=== PATIENT | female | born 1970 | race Caucasian/White ===

== ENCOUNTER 2017-03-15 18:28 | Emergency (ER) | payer OTHER ==
[~2017-03-15] VITALS: Ht 157.5 cm; Wt 56.0 kg
[~2017-03-15 18:28] MED LIST: CETI10CA PO; GUAI118L94 PO; HYDR-3011 PO; IBUP-1542 PO; IBUP200C11; POLY10DR19 RIGHT EYE; PREN1TAB49 ODT; SODI44SP11 NS; TRAM50TA2 PO
[2017-03-15 18:40] VITALS: Ht 157.5 cm; Wt 56.0 kg
[2017-03-15] MEDS ORDERED: BEN25 PO (19:22)
[2017-03-15] MEDS ORDERED: CETI10CA PO (19:23)
[2017-03-15] MEDS ORDERED: HC30CR25 TOP (19:23)
--- NOTE | 2017-03-15 19:40 | ERD ---
ER Documentation Chief Complaint Date/Time DATE: 03/15/17 TIME: 19:30 Chief Complaint itchiness,redness over her R thigh&back,teary eyes after taking med HPI Patient is a 47-year-old Greenlandic-speaking female with no past medical history who presents to the ED with bilateral itchy eyes and a rash on her arm and leg. She states that she took Ivone-Pomaria with an expiration date of July 2016 and states that she developed the symptoms about 1 hour afterwards. She denies tongue or lip swelling or difficulty breathing. Denies chest pain or cough or shortness of breath. States that the rash is itchy but not painful. Denies blurry vision or pain with eye movement. Denies fever or chills. No other complaints. ROS All systems reviewed and are negative except as per history of present illness. Medications Home Meds Active Scripts Hydrocortisone* Topical (Hydrocortisone* Topical) 2.5%-28.3 Gm Cream..g., 1 APPLIC TOP BID, #1 TUB Prov:RUDDY PATINO PA-C 03/15/17 Cetirizine Hcl* (Zyrtec*) 10 Mg Capsule, 10 MG PO DAILY, #10 TAB.CHEW Prov:RUDDY PATINO PA-C 03/15/17 Diphenhydramine Hcl* (Benadryl*) 25 Mg Cap, 25 MG PO Q6, #30 CAP Prov:RUDDY PATINO PA-C 03/15/17 Ibuprofen* (Ibuprofen*) 600 Mg Tablet, 600 MG PO Q8 Y for PAIN AND/OR INFLAMMATION, #30 TAB Prov:LAMBERTO SHEA MD 04/12/16 Hydroxyzine Hcl* (Hydroxyzine Hcl*) 25 Mg Tablet, 25 MG PO TID for NASAL CONGESTION, #30 TAB Prov:LAMBERTO SHEA MD 04/12/16 Ibuprofen* (Ibuprofen*) 600 Mg Tablet, 600 MG PO Q6 for 20 Days, TAB Prov:BETH BRANHAM MD 08/25/15 Polymyxin B Sulfate-TMP* (Polymyxin B-TMP Eye Drops*) 10 Ml Drops, 1 DROP RIGHT EYE QID for 7 Days, EA Prov:BETH BRANHAM MD 08/25/15 Cetirizine Hcl* (Zyrtec*) 10 Mg Capsule, 10 MG PO DAILY, #20 TAB.CHEW Prov:BETH BRANHAM MD 08/25/15 Tramadol HCl (Tramadol HCl) 50 Mg Tablet, 50 MG PO Q4 Y for PAIN, #20 TAB Prov:BETH BRANHAM MD 08/25/15 Guaifenesin-Codeine Phosphate* (Guaifenesin* with Codeine Liq) 120 Ml Liquid, 120 ML PO Q4H for COUGH, #120 ML Prov:TIFFANIE STOKES NP 07/12/15 Sodium Chloride (Saline Nasal [place]) 45 Ml Cl[place], 2 SPRAY NS Q2H, #1 BOT Prov:TIFFANIE STOKES NP 07/12/15 Reported Medications Vits W-Ca,Fe,Fa(<1MG) () 1 Tab Tablet, 1 ODT D for 1 Day 06/21/11 Ibuprofen* (Advil*) 200 Mg Capsule 04/06/10 Allergies Allergies: Coded Allergies: Penicillins (Verified Allergy, Mild, 07/05/14) PMhx/Soc History of Surgery: Yes (tonscills ) Anesthesia Reaction: No Hx Neurological Disorder: No Hx Respiratory Disorders: No Hx Cardiac Disorders: Yes (HTN, high cholesterol) Hx Psychiatric Problems: No Hx Miscellaneous Medical Probl: No Hx Alcohol Use: No Hx Substance Use: No Hx Tobacco Use: No Smoking Status: Never smoker FmHx Family History: No coronary disease, No diabetes, No other Physical Exam Vitals Vital Signs Date Time Temp Pulse Resp B/P Pulse Ox O2 Delivery O2 Flow Rate FiO2 03/15/17 18:40 98.3 66 18 165/76 98 Physical Exam GENERAL: Well-developed, well-nourished female. Appears in no acute distress. HEAD: Normocephalic, atraumatic. EYES: Pupils are equally reactive bilaterally. EOMs grossly intact. No conjunctival erythema. ENT: Moist mucous membranes. No uvula deviation. No kissing tonsils. No exudates. No tongue or lip swelling. NECK: Supple. No lymphadenopathy or thyromegaly. No meningismus. negative kernig. negative brudinski. LUNG: Clear to auscultation bilaterally. No rhonchi, wheezing, rales or coarse breath sounds. HEART: Regular rate and rhythm. No murmurs, rubs or gallops. BACK: No midline tenderness. Extremities: Equal pulses bilaterally. No peripheral clubbing, cyanosis or edema. No unilateral leg swelling. NEUROLOGIC: Alert and oriented. Moving all four extremities. 5/5 strength in all extremities. Normal speech. Steady gait. SKIN: Normal color. Warm and dry. No rashes visualized. Capillary refill < 2 seconds Procedures/MDM ER COURSE: I kept the patient and/or family informed of laboratory and diagnostic imaging results throughout the emergency room course. MEDICAL DECISION MAKING: This is a 47-year-old female who presents with rash and itchy eyes. Vital signs were reviewed. Patient is afebrile. Patient is not hypoxic. Low suspicion for necrotizing fasciitis, SJS, toxic epidermal necrolysis, Kawasaki, erythema multiforme, gangrene, scarlet fever, meningococcemia, sepsis, anaphylaxis, sepsis, deep space infection, or foreign body. Patient does not have signs of respiratory distress. DISCHARGE: At this time, patient is stable for discharge and outpatient management with no new complaints during the ER course. Patient was sent home with Benadryl, Zyrtec , hydrocortisone cream. Patient will be discharged home with instructions to recheck for new or worsening symptoms such as fever, nausea, weakness, LOC and to follow up with primary care in the next 1-2 days. Patient was advised to return to the ER for any new or worsening symptoms. Plan was discussed and patient and/or family understands and agrees. Home instructions were given. Departure Diagnosis: Primary Impression: Rash Condition: Stable Patient Instructions: Allergic Reaction, Other (General) Referrals: NO PRIMARY,CARE PHYSICIAN (PCP) [facility] Hours: Mon - Thu 9:00 AM - 5:00 PM Additional Instructions: Llame al doctor MAANA y montse raina RICHARDSON PARA DENTRO DE 1-2 HOWELL.Dgale a la secretaria que nosotros le instruimos hacer esta richardson.Avise o llame si preciado condicin se empeora antes de la richardson. Regresa aqui si peor o no mejor. RUDDY PATINO PA-C Mar 15, 2017 19:40
== END 2017-03-15 19:55 | disposition home or self-care (01) ==
LOC: FTE 18:28
DX: R21 Rash and other nonspecific skin eruption (principal); I10 Essential (primary) hypertension
CPT/HCPCS: 99283

== ENCOUNTER 2017-04-14 10:01 | Emergency (ER) | payer OTHER ==
[~2017-04-14] VITALS: Ht 152.4 cm; Wt 70.0 kg
[~2017-04-14 10:01] MED LIST changes: +BEN25 PO; +HC30CR25 TOP
[2017-04-14 10:04] VITALS: Ht 152.4 cm; Wt 70.0 kg
[2017-04-14] MEDS ORDERED: AZIT250T94 PO (11:09)
[2017-04-14] MEDS ORDERED: IBUP400T22 PO (11:10)
--- NOTE | 2017-04-14 11:15 | ERA ---
ER Documentation Chief Complaint Date/Time DATE: 04/14/17 TIME: 11:11 Chief Complaint FLU LIKE SYMPTOMS X2 DAY HPI 47-year-old female presenting with a chief complaint of headache, crazy and sinus pressure 2 days. Patient has not taken any medications to relieve the symptoms. No similar symptoms in the past. No sick contacts. Denies rigors, chills, body aches, meningismus, chest pain, shortness of breath, abdominal pain , nausea, vomiting, diarrhea, constipation, fever, chills. No medical conditions. Patient has no other complaints and describes no other associated manifestations. Nursing is been reviewed and are consistent with history given. ROS All systems reviewed and are negative except as per history of present illness. Medications Home Meds Active Scripts Ibuprofen* (Motrin*) 400 Mg Tab, 400 MG PO Q6, #20 TAB Prov:ROSSY JJ PA-C 04/14/17 Azithromycin* (Zithromax*) 250 Mg Tablet, 250 MG PO .ZPACK DIRECTED, #6 TAB TAKE 500 MG (2 TABS) THE FIRST DAY THEN 250 MG (1 TAB) DAYS 2-5 Prov:ROSSY JJ PA-C 04/14/17 Hydrocortisone* Topical (Hydrocortisone* Topical) 2.5%-28.3 Gm Cream..g., 1 APPLIC TOP BID, #1 TUB Prov:RUDDY PATINO PA-C 03/15/17 Cetirizine Hcl* (Zyrtec*) 10 Mg Capsule, 10 MG PO DAILY, #10 TAB.CHEW Prov:RUDDY PATINO PA-C 03/15/17 Diphenhydramine Hcl* (Benadryl*) 25 Mg Cap, 25 MG PO Q6, #30 CAP Prov:RUDDY PATINO PA-C 03/15/17 Ibuprofen* (Ibuprofen*) 600 Mg Tablet, 600 MG PO Q8 Y for PAIN AND/OR INFLAMMATION, #30 TAB Prov:LAMBERTO SHEA MD 04/12/16 Hydroxyzine Hcl* (Hydroxyzine Hcl*) 25 Mg Tablet, 25 MG PO TID for NASAL CONGESTION, #30 TAB Prov:LAMBERTO SHEA MD 04/12/16 Ibuprofen* (Ibuprofen*) 600 Mg Tablet, 600 MG PO Q6 for 20 Days, TAB Prov:BETH BRANHAM MD 08/25/15 Polymyxin B Sulfate-TMP* (Polymyxin B-TMP Eye Drops*) 10 Ml Drops, 1 DROP RIGHT EYE QID for 7 Days, EA Prov:BETH BRANHAM MD 08/25/15 Cetirizine Hcl* (Zyrtec*) 10 Mg Capsule, 10 MG PO DAILY, #20 TAB.CHEW Prov:BETH BRANHAM MD 08/25/15 Tramadol HCl (Tramadol HCl) 50 Mg Tablet, 50 MG PO Q4 Y for PAIN, #20 TAB Prov:EBTH BRANHAM MD 08/25/15 Guaifenesin-Codeine Phosphate* (Guaifenesin* with Codeine Liq) 120 Ml Liquid, 120 ML PO Q4H for COUGH, #120 ML Prov:TIFFANIE STOKES NP 07/12/15 Sodium Chloride (Saline Nasal [place]) 45 Ml [place], 2 SPRAY NS Q2H, #1 BOT Prov:TIFFANIE STOKES NP 07/12/15 Reported Medications Vits W-Ca,Fe,Fa(<1MG) () 1 Tab Tablet, 1 ODT D for 1 Day 06/21/11 Ibuprofen* (Advil*) 200 Mg Capsule 04/06/10 Allergies Allergies: Coded Allergies: Penicillins (Verified Allergy, Mild, 07/05/14) PMhx/Soc History of Surgery: Yes (tonscills ) Anesthesia Reaction: No Hx Neurological Disorder: No Hx Respiratory Disorders: No Hx Cardiac Disorders: Yes (HTN, high cholesterol) Hx Psychiatric Problems: No Hx Miscellaneous Medical Probl: No Hx Alcohol Use: No Hx Substance Use: No Hx Tobacco Use: No Physical Exam Vitals Vital Signs Date Time Temp Pulse Resp B/P Pulse Ox O2 Delivery O2 Flow Rate FiO2 04/14/17 10:04 98.1 78 18 141/74 99 Physical Exam Const: No acute distress. Obese. Head: Atraumatic Eyes: Normal Conjunctiva ENT: Frontal sinus tenderness. Ear canals and tympanic membranes within normal limits with light cone reflex visualized bilaterally. Nose mucous membrane color within normal limits. Nares minimally inflamed.Oropharynx slightly erythematous. Neck: Full range of motion..~ No meningismus. Resp: Clear to auscultation bilaterally Cardio: Regular rate and rhythm, no murmurs. radial pulses 2+ bilaterally. Cap refill less than 2 seconds bilaterally. Abd: Soft, non tender, non distended. Normal bowel sounds Skin: No petechiae or rashes Back: No midline or flank tenderness Ext: No cyanosis, or edema Neur: Awake and alert Psych: Normal Mood and Affect Procedures/MDM Otherwise healthy 47-year-old female presenting with a chief complaint of headache, crazy, and sinus pressure 2 days as described in history and physical examination. Patient is allergic to penicillin. Findings are consistent with viral versus bacterial pharyngitis, sinusitis, tension type headache. I will suspicion for airway obstructive pathologies, or serious bacterial infection such as pneumonia, meningitis among others. I have spoke with the patient regarding their condition and future management. They have verbally responded that they understand their status and treatment plan. The patients vitals are stable, and their current condition is appropriate for discharge. The patient will be given discharge instructions with return precautions. Departure Diagnosis: Primary Impression: URI (upper respiratory infection) Qualified Code: J06.9 - Viral upper respiratory tract infection Additional Impressions: Sinusitis Qualified Code: J01.10 - Acute non-recurrent frontal sinusitis Pharyngitis Qualified Code: J02.9 - Pharyngitis, unspecified etiology Condition: Stable Patient Instructions: Preventing Common Respiratory Infections Referrals: VERONA CANAS MD- (PCP) Additional Instructions: Andree un seguimiento con preciado PCP dentro de los prximos 1-3 elizabeth para raina evaluaci n ms completa y raina posible derivacin a un especialista. Devuelva el departamento de emergencia inmediatamente si los sntomas empeoran o cambian. Si tiene alguna pregunta con respecto a los medicamentos, consulte con preciado farmac utico o con nosotros antes de salir. Si se producen reacciones adversas mientras alexa ambar medicamentos, suspenda el tratamiento y regrese inmediatamente al servicio de urgencias. Morning Sun ambar medicamentos segn las indicaciones y complete el curso completo del tratamiento. ROSSY JJ PA-C Apr 14, 2017 11:15
== END 2017-04-14 15:13 | disposition home or self-care (01) ==
LOC: FTE 10:01
DX: J01.10 Acute frontal sinusitis, unspecified (principal); J06.9 Acute upper respiratory infection, unspecified; J02.9 Acute pharyngitis, unspecified; I10 Essential (primary) hypertension
CPT/HCPCS: 99283

== ENCOUNTER 2017-06-29 07:50 | Emergency (ER) | payer OTHER ==
[~2017-06-29] VITALS: Ht 157.5 cm; Wt 56.0 kg
[~2017-06-29 07:50] MED LIST changes: +AZIT250T94 PO; +IBUP400T22 PO
[2017-06-29 07:57] VITALS: Ht 157.5 cm; Wt 56.0 kg
[2017-06-29] MEDS ORDERED: FLUT9.9S NASAL (08:38)
[2017-06-29] MEDS ORDERED: PRED20TA PO (08:38)
[2017-06-29] MEDS ORDERED: ALBU8.5H3 INH (08:38)
[2017-06-29] MEDS ORDERED: AZIT250T94 PO (08:38)
--- NOTE | 2017-06-29 08:41 | ERD ---
ER Documentation Chief Complaint Chief Complaint FLU-LIKE SX INCL: DIZZINESS, ADAMS, ST, COUGH, CONGESTION STARTING LAST TUES HPI This 39-year-old female presents with nasal congestion, cough for last 6 days. She denies fevers. There is no history of chest pain, vomiting, abdominal pain , shortness of breath. ROS All systems reviewed and are negative except as per history of present illness. Medications Home Meds Active Scripts Albuterol Sulfate* (Proair HFA*) 8.5 Gm Hfa.aer.ad, 2 PUFF INH Q4, #1 INHALER Prov:BETH BRANHAM MD 06/29/17 Azithromycin* (Zithromax*) 250 Mg Tablet, 250 MG PO .ZPACLAUDIA DIRECTED, #6 TAB TAKE 500 MG (2 TABS) THE FIRST DAY THEN 250 MG (1 TAB) DAYS 2-5 Prov:BETH BRANHAM MD 06/29/17 Prednisone* (Prednisone*) 20 Mg Tab, 40 MG PO DAILY for 4 Days, TAB Prov:BETH BRANHAM MD 06/29/17 Fluticasone Propionate (Flonase Allergy Relief) 9.9 Ml [place].susp, 1 SPRAY NASAL DAILY, #1 BOTTLE TO EACH NOSTRIL Prov:BETH BRANHAM MD 06/29/17 Ibuprofen* (Motrin*) 400 Mg Tab, 400 MG PO Q6, #20 TAB Prov:ROSSY JJ PA-C 04/14/17 Azithromycin* (Zithromax*) 250 Mg Tablet, 250 MG PO .ZPACLAUDIA DIRECTED, #6 TAB TAKE 500 MG (2 TABS) THE FIRST DAY THEN 250 MG (1 TAB) DAYS 2-5 Prov:ROSSY JJ PA-C 04/14/17 Hydrocortisone* Topical (Hydrocortisone* Topical) 2.5%-28.3 Gm Cream..g., 1 APPLIC TOP BID, #1 TUB Prov:RUDDY PATINO PA-C 03/15/17 Cetirizine Hcl* (Zyrtec*) 10 Mg Capsule, 10 MG PO DAILY, #10 TAB.CHEW Prov:RUDDY PATINO PA-C 03/15/17 Diphenhydramine Hcl* (Benadryl*) 25 Mg Cap, 25 MG PO Q6, #30 CAP Prov:RUDDY PATINO PA-C 03/15/17 Ibuprofen* (Ibuprofen*) 600 Mg Tablet, 600 MG PO Q8 Y for PAIN AND/OR INFLAMMATION, #30 TAB Prov:LAMBERTO SHEA MD 04/12/16 Hydroxyzine Hcl* (Hydroxyzine Hcl*) 25 Mg Tablet, 25 MG PO TID for NASAL CONGESTION, #30 TAB Prov:LAMBERTO SHEA MD 04/12/16 Ibuprofen* (Ibuprofen*) 600 Mg Tablet, 600 MG PO Q6 for 20 Days, TAB Prov:BETH BRANHAM MD 08/25/15 Polymyxin B Sulfate-TMP* (Polymyxin B-TMP Eye Drops*) 10 Ml Drops, 1 DROP RIGHT EYE QID for 7 Days, EA Prov:BETH BRANHAM MD 08/25/15 Cetirizine Hcl* (Zyrtec*) 10 Mg Capsule, 10 MG PO DAILY, #20 TAB.CHEW Prov:BETH BRANHAM MD 08/25/15 Tramadol HCl (Tramadol HCl) 50 Mg Tablet, 50 MG PO Q4 Y for PAIN, #20 TAB Prov:BETH BRANAHM MD 08/25/15 Guaifenesin-Codeine Phosphate* (Guaifenesin* with Codeine Liq) 120 Ml Liquid, 120 ML PO Q4H for COUGH, #120 ML Prov:TIFFANIE STOKES NP 07/12/15 Sodium Chloride (Saline Nasal [place]) 45 Ml [place], 2 SPRAY NS Q2H, #1 BOT Prov:TIFFANIE STOKES NP 07/12/15 Reported Medications Vits W-Ca,Fe,Fa(<1MG) () 1 Tab Tablet, 1 ODT D for 1 Day 06/21/11 Ibuprofen* (Advil*) 200 Mg Capsule 04/06/10 Allergies Allergies: Coded Allergies: Penicillins (Verified Allergy, Mild, 06/29/17) PMhx/Soc History of Surgery: Yes (tonscills ) Anesthesia Reaction: No Hx Neurological Disorder: No Hx Respiratory Disorders: No Hx Cardiac Disorders: Yes (HTN, high cholesterol) Hx Psychiatric Problems: No Hx Miscellaneous Medical Probl: No Hx Alcohol Use: No Hx Substance Use: No Hx Tobacco Use: No Smoking Status: Never smoker Physical Exam Vitals Vital Signs Date Time Temp Pulse Resp B/P Pulse Ox O2 Delivery O2 Flow Rate FiO2 06/29/17 07:57 98.7 73 20 123/75 96 Physical Exam Const: [] Alert, [id number]. Head: Atraumatic Eyes: Normal Conjunctiva ENT: Normal External Ears, Nose and Mouth. TMs and oropharynx normal. 3+ nasal congestion. Neck: Full range of motion..~ No meningismus. Resp: Clear to auscultation bilaterally. Minimal forced wheeze without rales or retractions. Cardio: Regular rate and rhythm, no murmurs Abd: Soft, non tender, non distended. Normal bowel sounds Skin: No petechiae or rashes Back: No midline or flank tenderness Ext: No cyanosis, or edema Neur: Awake and alert Psych: Normal Mood and Affect Procedures/MDM Presents with worsening URI symptoms and nasal congestion over the last week without evidence of hypoxemia or respiratory distress or signs of pneumonia.. She may have a viral URI or possible sinusitis given the duration and purulent mucus. She will be treated with short course prednisone, Provera, Flonase and Zithromax. The patient was stable with no new complaints during the ER course. Clinically, there is no current evidence to suggest meningitis, sepsis, acute abdomen, pneumonia, acute coronary syndrome, pulmonary embolism, or any other emergent condition appearing to require further evaluation or hospitalization. The patient should certainly return for any new or worsening symptoms per the aftercare instructions. They should otherwise follow-up with her primary care doctor for reevaluation this week. Departure Diagnosis: Primary Impression: Upper respiratory infection URI type: unspecified URI Qualified Code: J06.9 - Upper respiratory tract infection, unspecified type Condition: Stable Patient Instructions: Bronchitis With Wheezing (Adult) Additional Instructions: Recheck for new or worsening symptoms with primary care doctor. Cheque otro vez con preciado doctor primario en el proximo palm or regresa para mas o nueva simptomas. BETH BRANHAM MD Jun 29, 2017 08:41
== END 2017-06-29 08:59 | disposition home or self-care (01) ==
LOC: FTE 07:50
DX: J06.9 Acute upper respiratory infection, unspecified (principal); I10 Essential (primary) hypertension
CPT/HCPCS: 99284

== ENCOUNTER 2017-08-02 12:19 | Emergency (ER) | END 2017-08-02 12:40 | disposition home or self-care (01) ==

== ENCOUNTER 2017-09-23 09:34 | Emergency (ER) | END 2017-09-23 13:32 | disposition home or self-care (01) ==